=== PATIENT | female | born 1950 | race Caucasian/White ===

== ENCOUNTER → 2018-11-20 | Outpatient (CLI) | payer OTHER | END | disposition home or self-care (01) | LOC: CFH 07:57 | PROVIDERS: ATTEND Family Medicine | DX: Z12.31 Encounter for screening mammogram for malignant neoplasm of breast (principal); R92.8 Other abnormal and inconclusive findings on diagnostic imaging of breast | CPT/HCPCS: 77067 ==

== ENCOUNTER 2019-08-27 08:54 | Emergency (ER) | payer OTHER ==
[~2019-08-27] VITALS: Ht 165.1 cm; Wt 71.7 kg
--- NOTE | 2019-08-27 08:57 | NUR ---
NA X1
[2019-08-27 08:59] VITALS: BP 134/67
--- NOTE | 2019-08-27 09:06 | NUR ---
Per pt, "I wake up sometimes in the morning with a headache. I get up and it usually goes away. This morning I noticed some crusted blood in my right ear. I don't have pain, but I do feel pressure. I felt a little dizzy yesterday." Pt sitting on gurney in pt gown. EDPA at bedside. Call light within reach. No needs expressed.
[2019-08-27] MEDS ORDERED: vitamin D (09:14)
--- NOTE | 2019-08-27 09:35 | NUR ---
Patient given discharge instructions and they have confirmed that they understand the instructions. Patient ambulatory with steady gait. Pt left with Rx, D/C paperwork, and all personal belongings.
== END 2019-08-27 09:38 | disposition home or self-care (01) ==
LOC: ED 09:26
DX: H60.8X1 Other otitis externa, right ear (principal)
CPT/HCPCS: 99283

== ENCOUNTER 2020-01-29 07:29 | Outpatient (CLI) | payer OTHER ==
[~2020-01-29 07:29] MED LIST: vitamin D
== END 2020-01-29 23:59 | disposition home or self-care (01) ==
LOC: CFH 07:29
PROVIDERS: ATTEND Nurse Practitioner Family
DX: Z12.31 Encounter for screening mammogram for malignant neoplasm of breast (principal)
CPT/HCPCS: 77067

== ENCOUNTER → 2021-02-24 | Outpatient (CLI) | payer OTHER | END | disposition home or self-care (01) | LOC: CFH 08:09 | PROVIDERS: ATTEND Family Medicine | DX: Z12.31 Encounter for screening mammogram for malignant neoplasm of breast (principal) | CPT/HCPCS: 77067 ==